=== PATIENT | female | born 1980 | race Caucasian/White ===

== ENCOUNTER 2016-07-03 15:52 | Emergency (ER) | payer OTHER ==
--- NOTE | ~2016-07-03 | CT2 ---
[facility] A Service of [facility] & [facility] RADIOLOGY TEXT RESULTS PATIENT: ESVIN ADKINS LOCATION: SED : 84 UNIT #: [id number] AGE: [address]: Terell Pillai SEX: F ORDER DR: [id number] [place] [id number] E MR#: [id number] Acc #: [id number] NAME: ESVIN ADKINS : 1980 SEX: F STUDY DATE/TIME: 07/03/2016 18:19 UNIT: SED ROOM: STUDY DESCRIPTION: CT Abd and Pelv W Cont Attending Physician: Terell Pillai P.A.-C. Ordering Physician: Terell Pillai P.A.-C. Primary Care Physician: Primary Care Physician No MEDICAL IMAGING REPORT This report is preliminary unless electronic signature is present. EXAM CT abdomen and pelvis, 07/03/2016 HISTORY Pain, right side abdomen pain for 6 months. Right upper quadrant pain off and on, worse today. TECHNIQUE CT abdomen and pelvis performed with intravenous administration 100 mL Isovue-370. Enteric contrast not administered. Study limited in the absence of enteric contrast. No comparisons. This CT exam was performed with one or more of the following radiation dose reduction techniques: Automatic exposure control, adjustment of mA and/or kV according to patient size, and iterative reconstruction. FINDINGS Bilateral augmentation mammoplasty. Inferior heart and pericardium unremarkable. Lung bases clear. Liver shows focal area of diminished density adjacent to the gallbladder most consistent with focal fatty infiltration. The gallbladder is decompressed. The gallbladder wall is at upper limits of normal in thickness, but this likely reflects the decompressed state of the gallbladder. There is no pericholecystic inflammatory change. No gallstones. No biliary ductal dilatation. The spleen, pancreas, adrenal glands are unremarkable. Right kidney unremarkable. Left kidney shows mild pyelocaliectasis. No perinephric inflammatory change, renal calculus or ureteral dilatation. This is probably a reflection of mild left pyeloureteral junction narrowing. CT PELVIS: No inguinal adenopathy. Urinary bladder unremarkable. There is some haziness and stranding in the bilateral adnexal fat. No fluid collection. There are right follicular ovarian cysts. The left ovary is not well seen. The haziness in the adnexal fat may be physiologic in nature and related to the patient's menstrual cycle. Correlate with any STS. [facility] [place] A Service of [facility] RADIOLOGY TEXT RESULTS PATIENT: ESVIN ADKINS LOCATION: SED : 84 UNIT #: [id number] AGE: [address]: eTrell Pillai PAC SEX: F ORDER DR: clinical indications of pelvic infection or inflammation. There is no pelvic or retroperitoneal adenopathy. The distal esophagus, stomach, small bowel unremarkable. Patient appears to retain normal appendix. Colon unremarkable. There are some mildly prominent venous collateral veins in the left upper quadrant of the abdomen, etiology and clinical significance of which are unclear. The portal vein and its major tributaries appear patent. The aorta is normal in caliber. Umbilical hernia containing only fat without complication. Bony structures show no acute abnormality. IMPRESSION 1. There is some haziness in the bilateral adnexal fat. There is no fluid collection. Etiology and significance unclear. The appearance could be physiologic in nature and reflect phase of the patient's menstrual cycle. Please correlate with any clinical concern for parametrial inflammation or infection. There are small right follicular ovarian cysts. The left ovary is not clearly visualized. 2. Focal fatty infiltration of the liver adjacent to the gallbladder fossa. No suspicious hepatic finding. 3. Gallbladder decompressed but otherwise unremarkable. 4. Pancreas and appendix normal. 5. Mild left pyelocaliectasis. No obstructing process seen. No perinephric inflammatory change. Appearance favored to reflect mild pyeloureteral junction stenosis. 6. Small bowel and colon unremarkable. 7. Small hiatal hernia containing only fat without complication. 8. Postoperative changes of bilateral augmentation mammoplasty. Dictated by... Terell Canada M.D. THIS IS AN ELECTRONICALLY VERIFIED REPORT Terell Canada M.D. at 07/04/2016 2:21 PM JENNIFER/pranay TD: 07/03/2016 23:23 JOB #: [id number] MEDICAL IMAGING REPORT Page 1 of 1
[2016-07-03] MEDS ORDERED: NO MEDICATIONS (15:55)
[2016-07-03 16:42] LABS: BASOPHIL# 0.1 X10e3 (0-0.3); BASOPHIL% 0.8 % (0-2.5); EOSINOPHIL# 0.1 X10e3 (0-0.7); EOSINOPHIL% 1.3 % (0.0-7.0); HEMATOCRIT 37.5 % (35.0-45.0); HEMOGLOBIN 12.7 gm/dL (12.0-16.0); LYMPHOCYTE# 2.5 X10e3 (1.0-3.5); LYMPHOCYTE% 40.8 % (17.0-45.0); MEAN CELL VOLUME 89.1 FL (83-96); MEAN CORPUSCULAR HEMOGLOBIN 30.2 PG (28-34); MEAN CORPUSCULAR HGB CONC 33.9 g/dL (30-36); MEAN PLATELET VOLUME 9.1 FL (6.5-11.5); MONOCYTE# 0.6 X10e3 (0-1.0); MONOCYTE% 8.9 % (3.0-12.0); NEUTROPHIL% 48.2 % (40-75); PLATELET COUNT 203 X10e3 (140-420); RED BLOOD COUNT 4.21 X10e (3.90-5.30); RED CELL DISTRIBUTION WIDTH 13.4 % (11.0-15.5); WHITE BLOOD COUNT 6.2 X10e3 (4.0-10.5)
[2016-07-03 16:43] LABS: DIFF IND NO
[2016-07-03 16:49] LABS: URINE SOURCE CLEAN CATCH
[2016-07-03 16:50] LABS: URINE APPEARANCE CLEAR; URINE BILIRUBIN NEG (NEG); URINE BLOOD NEG (NEG); URINE COLOR YELLOW; URINE GLUCOSE NEG (NORM); URINE KETONE TRACE (NEG); URINE LEUKOCYTE ESTERASE NEG (NEG); URINE NITRATE NEG (NEG); URINE PH 5.5 (5-8); URINE SPECIFIC GRAVITY 1.025 (1.003-1.035)
[2016-07-03 17:03] LABS: MICRO INDICATED? NO; URINE PROTEIN NEG (NEG)
[2016-07-03 17:05] LABS: ALBUMIN SERUM 4.4 g/dL (3.5-5.0); BILIRUBIN, DIRECT 0.1 mg/dL (0.0-0.2); BILIRUBIN,INDIRECT 0.3 mg/dL (0.0-0.9); BILIRUBIN,TOTAL 0.4 mg/dL (0.2-2.0); BUN/CREATININE RATIO 42.5; CALCIUM SERUM 8.9 mg/dL (8.4-10.2); CREATININE SERUM 0.4 mg/dL (0.6-1.4); GLOM FILT RATE Estimated 136.9 mL/min (>60); POTASSIUM 4.4 mmol/L (3.5-5.1); PROTEIN TOTAL SERUM 7.4 g/dL (6.0-8.3)
== END 2016-07-03 20:08 | disposition home or self-care (01) ==
LOC: SED 15:52
PROVIDERS: Physician Assistant
DX: N83.01 Follicular cyst of right ovary (principal)
CPT/HCPCS: 36415; 74177; 80048; 80076; 81003; 83690; 84703; 85025; 96374; 96375; 99284; J1885; J2405; Q9967